=== PATIENT | female | born 1950 | race Caucasian/White ===

== ENCOUNTER → 2023-10-18 12:30 | Outpatient (REF) | payer MEDICARE, OTHER, SELFPAY | LOC: RAD 12:30 | PROVIDERS: ATTENDING PHYSICIAN Family Medicine | DX: R05.9 Cough, unspecified (principal) | CPT/HCPCS: 71046 ==

== ENCOUNTER → 2023-11-12 16:43 | Outpatient (REF) | payer MEDICARE, OTHER, SELFPAY | LOC: RAD 16:43 | PROVIDERS: ATTENDING PHYSICIAN Otolaryngology; FAMILY PHYSICIAN Family Medicine | DX: J32.2 Chronic ethmoidal sinusitis (principal); J32.0 Chronic maxillary sinusitis | CPT/HCPCS: 70486 ==

== ENCOUNTER 2023-12-16 06:26 | Day surgery (SDC) | payer MEDICARE, OTHER, SELFPAY ==
[2023-12-16] VITALS (10 sets, daily range): BP systolic 108–128; BP diastolic 47–88; BMI 24.0
[2023-12-16] MEDS: NORMOSOL-R 1000 IV (09:15)
== END 2023-12-16 13:22 | disposition home or self-care (01) ==
LOC: SDS 06:26
PROVIDERS: ATTENDING PHYSICIAN Otolaryngology
DX: J01.91 Acute recurrent sinusitis, unspecified (principal); B96.1 Klebsiella pneumoniae [K. pneumoniae] as the cause of diseases classified elsewhere
CPT/HCPCS: 31254; 31267; 88304; 88311; 88312; 87070; 87075; 87077; 87102; 87147; 87186; 87205

== ENCOUNTER → 2025-07-02 13:45 | Outpatient (REF) | payer MEDICARE, OTHER, SELFPAY | LOC: MRI 3T 13:45 | PROVIDERS: ATTENDING PHYSICIAN Family Medicine | DX: Z85.3 Personal history of malignant neoplasm of breast (principal) | CPT/HCPCS: 77049; A9585 ==